=== PATIENT | female | born 1975 | race Caucasian/White ===

== ENCOUNTER → 2018-08-11 | Outpatient (CLI) | payer OTHER ==
[~2018-08-11] MED LIST: IBU200 PO; IBU800 PO; LOR5 PO; LOR5/325 PO; MULT1CAP41 PO; PER PO
--- NOTE | 2018-08-14 10:44 | RADIOLOGY IMAGING REPORT ---
[place]AC[place] [facility] [place] NAME: SEDA VELASQUEZ : [id number] MR: [id number]: [id number] EXAM DATE: ORDERING PHYSICIAN: LEAH VILLASEÑOR TECHNOLOGIST: Yessy Genao PROCEDURE:BILATERAL DIGITAL SCREENING MAMMOGRAM WITH CAD ASSISTED INTERPRETATION & 3D TOMOSYNTHESIS COMPARISON:Prior mammograms 07/27/17. INDICATIONS:SCREENING FINDINGS: The breasts are heterogeneously dense which can obscure small masses. There is a marked asymmetry in the size of the breasts with the Right breast being much smaller than the Left. This appears similar to the prior study. The parenchymal pattern has remained stable throughout both breasts when allowing for difference in mammographic technique & patient positioning. DIAGNOSTIC CATEGORY 2--BENIGN FINDING. RECOMMENDATIONS: ROUTINE MAMMOGRAM AND CLINICAL EVALUATION. IMPRESSION: BIRADS 2: Benign finding. No significant abnormality is seen. Dictated by: Oxana Pack M.D. on 08/11/2018 at 15:50 Transcribed by: [email or web address] on 08/11/2018 at 16:03 Approved by: Oxana Pack M.D. on 08/14/2018 at 10:43 [facility]
== END ==
LOC: MAMO 00:22
PROVIDERS: ATTEND Obstetrics & Gynecology
DX: Z12.31 Encounter for screening mammogram for malignant neoplasm of breast (principal)
CPT/HCPCS: 77063; 77067